=== PATIENT | female | born 1970 | race Two or more races ===

== ENCOUNTER 2025-01-21 14:00 | Emergency (ER) | payer OTHER ==
[~2025-01-21] VITALS: Ht 162.6 cm; Wt 63.5 kg
[2025-01-21] MEDS ORDERED: ZOLOFT25 MG (14:15)
[2025-01-21] MEDS ORDERED: KETOROLAC TROMETHAMINE 60 MG VIAL IM STA (15:14)
[2025-01-21] MEDS ORDERED: ORPHENADRINE CITRATE 30 MG/ML AMPUL IM STA (15:14)
[2025-01-21] MEDS ORDERED: ORPHENADRINE CITRATE 30 MG/ML AMPUL ONE (15:26)
[2025-01-21] MEDS ORDERED: KETOROLAC TROMETHAMINE 60 MG VIAL IM ONE (15:27)
== END 2025-01-21 17:56 | disposition home or self-care (01) ==
LOC: ER 14:01
DX: S30.0XXA Contusion of lower back and pelvis, initial encounter (principal); S50.01XA Contusion of right elbow, initial encounter; S00.93XA Contusion of unspecified part of head, initial encounter; W10.8XXA Fall (on) (from) other stairs and steps, initial encounter; Y93.89 Activity, other specified; Y92.89 Other specified places as the place of occurrence of the external cause; Y99.9 Unspecified external cause status; M51.369 Other intervertebral disc degeneration, lumbar region without mention of lumbar back pain or lower extremity pain